=== PATIENT | male | born 1940 | race Caucasian/White ===

== ENCOUNTER 2022-10-08 09:12 | Day surgery (SDC) | payer MEDICARE ==
[~2022-10-08] VITALS: Ht 175.3 cm; Wt 94.9 kg
[~2022-10-08 09:12] MED LIST: ATOR20; Aspir 8181 MG PO; FINA5 PO; OMEP20ER PO; TERA5 PO
[2022-10-08] MEDS ORDERED: TAMSULOSIN HCL0.4 M1 PO (10:36)
--- NOTE | 2022-10-08 11:07 | NUR ---
[facility] [facility] IRREGULAR HEART BEAT AND THAT PATIENT STATES HE HAS BEEN TOLD HE HAS AN IRREGULAR HEART BEAT, BUT THAT IT HAS NOT BEEN EVALUATED BY A AIRBR[employer] ARTIST TECHNICAL. PATIENT STATES HE WILL BE EVALUATED BY A AIRBR[employer] ARTIST TECHNICAL NEXT MONTH. PATIENT DENIES ANY SYMPTOMS AND STATES HE FEELS LIKE HIS NORMAL SELF. DR TOMLINSON ORDERED EKG. EKG COMPLETED.
[2022-10-08 12:01] VITALS: BP 143/90
== END 2022-10-08 12:15 | disposition home or self-care (01) ==
LOC: ORSCSDS 09:12
PROVIDERS: Student in an Organized Health Care Education/Training Program
PROC: 08RJ3JZ Replacement of Right Lens with Synthetic Substitute, Percutaneous Approach (ICD-10-PCS; principal; 2022-10-08 11:00)
DX: H25.13 Age-related nuclear cataract, bilateral (principal); K21.9 Gastro-esophageal reflux disease without esophagitis; Z79.899 Other long term (current) drug therapy
CPT/HCPCS: 93005; 93010; A9270; J2250; J3010; J7040; V2632

== ENCOUNTER 2022-10-15 10:38 | Day surgery (SDC) | payer MEDICARE ==
[~2022-10-15] VITALS: Ht 175.3 cm; Wt 96.1 kg
[~2022-10-15 10:38] MED LIST changes: +TAMSULOSIN HCL0.4 M1 PO
[2022-10-15 12:55] VITALS: BP 160/88
--- NOTE | 2022-10-15 13:28 | NUR ---
10/15/22 1328 [facility] REMOVED INTACT. SITE WNL. PT HAS IRREGULAR BRADYCARDIA AT BASELINE, PER DR. LINDQUIST. PT DENIED CARDIAC SYMPTOMS--INCLUDING CHEST PAIN, DIZZINESS, OR SHORTNESS OF BREATH--AND NONE WERE OBSERVED. DR. LINDQUIST CONSULTED AND APPROVED DISCHARGE WITH CURRENT VITALS AND IN CURRENT CONDITION.
== END 2022-10-15 13:15 | disposition home or self-care (01) ==
LOC: ORSCSDS 10:38
PROVIDERS: Student in an Organized Health Care Education/Training Program
PROC: 08RK3JZ Replacement of Left Lens with Synthetic Substitute, Percutaneous Approach (ICD-10-PCS; principal; 2022-10-15 12:00)
DX: H25.12 Age-related nuclear cataract, left eye (principal); Z96.1 Presence of intraocular lens; I10 Essential (primary) hypertension; E78.5 Hyperlipidemia, unspecified; Z87.891 Personal history of nicotine dependence; Z79.899 Other long term (current) drug therapy; Z79.82 Long term (current) use of aspirin
CPT/HCPCS: J2250; J3300; J7040; V2632

== ENCOUNTER 2023-03-10 07:12 | Day surgery (SDC) | payer MEDICARE ==
[~2023-03-10] VITALS: Ht 175.3 cm; Wt 90.9 kg
[~2023-03-10 07:12] MED LIST changes: -ATOR20; +ATOR20 PO; +CALCIUM 1,0001 EAC1 PO; +MULVITA PO; +ZYRTEC10 M1 PO
[2023-03-10 08:01] VITALS: BP 154/113
--- NOTE | 2023-03-10 09:05 | NUR ---
PT BACK TO RECOVERY ROOM VIA RECLINER AFTER PROCEDURE. AWAKE AND ALERT, DENIES PAIN OR DISCOMFORT. PRELUDE BAND IN PLACE ON RIGHT WRIST. SLIGHT SWELLING NOTED PROXIMAL TO BAND. PER STAFF IN PROCEDURE, HEMATOMA WAS NOTED AFTER PROCEDURE AND MANUAL PRESSURE WAS HELD TO THE SITE.
[2023-03-10 09:10] VITALS: BP 145/85
--- NOTE | 2023-03-10 09:53 | NUR ---
PT EATING BREAKFAST, DENIES ANY DISCOMFORT. VSS, CALL LIGHT IN REACH.
[2023-03-10 10:00] VITALS: BP 130/89
--- NOTE | 2023-03-10 10:00 | NUR ---
ALL AIR HAS BEEN REMOVED FROM RIGHT RADIAL PRELUDE BAND. NO BLEEDING NOTED. AREA IS STILL SWOLLEN, BUT SWELLING IS SOFT AND CURRENTLY NON-TENDER.
[2023-03-10 10:15] VITALS: BP 140/110
[2023-03-10 10:19] VITALS: BP 132/84
--- NOTE | 2023-03-10 10:35 | NUR ---
IV DC'D, CATH INTACT. PT GIVEN DC INSTRUCTIONS AND FOLLOW UP INFO, VERBALIZED UNDERSTANDING. PRELUDE BAND REMOVED FROM RIGHT WRIST, CLOTH DOT DRESSING PLACED OVER SITE AND SPLINT PLACED BACK ON WRIST. SOFT SWELLING IS STILL NOTED AROUND SITE, DOES NOT APPEAR TO BE A HEMATOMA. INSTRUCTED PT TO HOLD FIRM, MANUAL PRESSURE TO SITE IF FIRM SWELLING OCCURS. PT OUT TO CAR VIA WHEELCHAIR.
== END 2023-03-10 10:35 | disposition home or self-care (01) ==
LOC: MHTC 07:12
DX: I25.10 Atherosclerotic heart disease of native coronary artery without angina pectoris (principal); E78.5 Hyperlipidemia, unspecified
CPT/HCPCS: 76937; 93458; 99152; 99153; C1769; C1887; C1894; J1644; J2250; J3010; J7030; J7050; Q9967